=== PATIENT | male | born 1990 | race Caucasian/White ===

== ENCOUNTER 2020-05-02 13:30 | Emergency (ER) | payer MEDICAID ==
[~2020-05-02] VITALS: Ht 177.8 cm; Wt 71.0 kg
[2020-05-02 13:33] VITALS: BP 129/81
== END 2020-05-02 14:02 | disposition home or self-care (01) ==
LOC: ER 13:31
DX: Z02.89 Encounter for other administrative examinations (principal); Z88.0 Allergy status to penicillin; Z91.041 Radiographic dye allergy status
CPT/HCPCS: 99281